=== PATIENT | female | born 1980 | race Caucasian/White ===

== ENCOUNTER 2019-08-17 16:26 | Emergency (ER) | payer OTHER, SELFPAY ==
--- NOTE | ~2019-08-17 | XR_ITS ---
EXAMINATION: XR chest 1V portable DATE: 08/17/2019 17:11 INDICATION: Mid to left-sided chest pain. TECHNIQUE: frontal view of the chest was obtained. COMPARISON: Chest radiograph dated 04/10/2017 FINDINGS: Linear discoid atelectasis at the left mid and right mid to lower lung zones. No pulmonary edema, ple ural effusion or pneumothorax. The cardiomediastinal silhouette is within normal limits for AP techni que. Median sternotomy wires. IMPRESSION: 1. Mild bilateral discoid atelectasis. Reviewed, dictated and finalized at location A. ING SUPERVISOR
--- NOTE | ~2019-08-17 | CT_ITS ---
EXAMINATION: CTA chest PE protocol DATE: 08/17/2019 20:09 INDICATION: Chest pain TECHNIQUE: Computed tomography (CT) pulmonary angiogram of the chest was performed with 100 mL Omnipa que-350 intravenous contrast. Additional 3D reconstructions utilizing coronal maximum intensity proje ction (MIP) were performed. Automated exposure control and iterative reconstruction technique were em ployed. The dose-length product was 843.48 mGy-cm. COMPARISON: Chest CT dated 03/30/2012 FINDINGS: Excellent contrast opacification of the pulmonary arteries. There is mild streak artifact from dense contrast in the superior vena cava and right atrium. Scattered respiratory motion artifact, mild at t he upper lung zones increasing to severe at the bilateral lower lung zones. This significantly limits sensitivity in the basilar segmental pulmonary arteries. No definitive pulmonary embolism. Scattered mild discoid atelectasis in the lingula, right upper and bilateral lower lobes. No pneumonia, pulmon hal edema or pleural effusion. Heart size is normal. No pericardial effusion. Thoracic aorta is fredi l in caliber with no dissection. No pathologically enlarged thoracic lymphadenopathy. Visualized uppe r abdomen is unremarkable. Median sternotomy wires. Bones are otherwise unremarkable. IMPRESSION: 1. No pulmonary embolism identified. Sensitivity significantly limited in the basilar subsegmental pu lmonary arteries due to respiratory motion in the lower lung zones. 2. Mild scattered discoid atelectasis in both lungs. Reviewed, dictated and finalized at location A. LED NURSING FACILITY COUNSELOR IMPRESSION: 1. No pulmonary embolism identified. Sensitivity significantly limited in the b asilar subsegmental pulmonary arteries due to respiratory motion in the lower l rebekah zones. 2. Mild scattered discoid atelectasis in both lungs.
[2019-08-17 16:36] VITALS: BP 141/114; PULSE 70; RESP 14; TEMP 36.8; O2SAT 98
--- NOTE | 2019-08-17 16:40 | ED.CHESTPAIN ---
HPI - Chest Pain General Chief Complaint: Chest Pain Stated Complaint: CP Time Seen by Provider: 08/17/19 16:27 Source: patient and RN notes reviewed Mode of arrival: EMS Limitations: no limitations History of Present Illness HPI narrative: A 39 y/o female presents to the ED via EMS from [facility] with intermittent, sharp, stabbing, 9/10, lt CP beginning 1.5 hours ago. She states that she was laying on the concrete floor when the pain began and denies anything aggravating or alleviating it. She reports that the pain radiates into her back and neck. She notes that she then became so worked up that she vomited blood. She denies any cough, SOB, diarrhea, ABD pain, fevers, chills, and any other medical complaints at this time. MD complaint: chest pain (lt) Pertinent past history: CABG Onset (ago): hour(s) (1.5) Timing of current episode: episodic Onset: during rest Pain location: left chest Pain radiation: back and neck Pain scale (0-10): 9 Quality: sharp and other (stabbing) Relieving factors: nothing Exacerbating factors: nothing Associated symptoms: vomiting (blood) Risk Factors Coronary artery disease risk factors: hyperlipidemia Related Data Allergies Allergy/AdvReac Type Severity Reaction Status Date / Time No Known Allergies Allergy Unknown Verified 08/17/19 18:18 Review of Systems Review of Systems: All systems reviewed & are unremarkable except as noted in HPI and below Constitutional: Constitutional: Denies chills, Denies fever(s), Denies headache(s) and Denies weakness Eyes: Eyes: Denies blurry vision ENT: Denies headache(s) and Denies neck pain Cardiovascular: Cardiovascular: Reports chest pain (lt that radiates into her neck and back) and Denies dyspnea Respiratory: Respiratory: Denies cough and Denies dyspnea Gastrointestinal: Gastrointestinal: Denies abdominal pain, Denies diarrhea and Reports hematemesis Genitourinary: Genitourinary: Denies hematuria and Denies dysuria Neurologic: Denies headache(s) and Denies weakness PMFSH Past Medical History Medical History (Updated 09/19/19 @ 07:06 by Allyn Palacios MD) Anxiety Asthma Bronchitis Depression Dysphagia Endocarditis Endometriosis GERD (gastroesophageal reflux disease) History of ovarian cyst History of pneumonia HLD (hyperlipidemia) Hx of migraines Pneumothorax Surgical History Surgical History (Updated 08/17/19 @ 22:12 by Ruben Mederos) History of appendectomy History of heart surgery For endocarditis and removal of vegetation. History of oophorectomy History of removal of ovarian cyst Social History Social History (Updated 08/17/19 @ 16:49 by Ruben Mederos) Smoking status: Unknown if ever smoked Substance use: unknown Substance use type: heroin Gender identity (if verbalized by the patient): Female Exam Const: General: no acute distress and well developed Orientation/consciousness: oriented to person, oriented to place, oriented to time and patient oriented x3 HENMT: Head: normocephalic Ears: external ears normal General nose exam: Normal external nose present Eyes: General: appearance normal, both eyes and all related structures Conjunctivae: conjunctivae normal Neck: Neck: normal visual inspection and full ROM Chest: Chest palpation & inspection: normal inspection of the chest and no tenderness Resp: Effort & Inspection: normal respiratory effort Auscultation: clear to auscultation bilaterally Cardio: Rate: regular rate Rhythm: regular rhythm GI: GI Palp: No abdominal tenderness and Yes Soft to palpation Skin: General skin exam: normal color and turgor normal Neuro: General: oriented to person, oriented to place, oriented to time and patient oriented x3 Cognition (Neuro): normal cognition Extrem: General: normal to inspection, full ROM and no pedal edema Psych: Appearance: grossly normal Mental Status: mental status grossly normal Affect: normal affect Course Vital Signs Vital sign
--- NOTE | 2019-08-17 16:45 | ECG_ITS ---
Measurements Intervals [place] Rate: 58 P: 38 NE: 142 QRS: 18 QRSD: 91 T: 100 QT: 418 QTc: 413 Interpretive Statements SINUS BRADYCARDIA WITH SINUS ARRHYTHMIA BORDERLINE ST-T WAVE ABNORMALITY- LATERAL LEADS BORDERLINE ECG Electronically Signed On 08-17-2019 17:22:13 [employer] SALES AGENT by Mando Hodge D.O.
[2019-08-17 18:15] LABS: Basophils Percent Auto 0.5 % (0.2-1.2); Eosinophils Percent Auto 0.4 % (0-4.4); Hematocrit 42.5 % (37.0-47.0); Immature Granulocyte Absolute 0.01 K/mm3 (0.00-0.031); Immature Granulocyte Percent A 0.2 % (0-0.5); Lymphocytes Absolute Auto 1.74 K/mm3 (0.9-3.2); Lymphocytes Percent Auto 31.1 % (18.3-44.2); Mean Corpuscular HGB Conc 32.9 g/dl (32-36); Mean Corpuscular Hemoglobin 28.5 pg (26-34); Mean Corpuscular Volume 86.6 fl (80-100); Mean Platelet Volume 10.3 fl (7.4-10.4); Monocytes Absolute Auto 1.1 K/mm3 (0.1-0.6); Monocytes Percent Auto 19.6 % (2.6-8.5); Neutrophils Absolute Auto 2.7 K/mm3 (1.3-6.7); Neutrophils Percent Auto 48.2 % (45.5-73.1); Platelet Count Result 308 k/mm3 (150-375); Red Blood Count 4.91 M/mm3 (4.2-5.4); Red Cell Distribution Width 13.7 % (11.5-14.5); White Blood Count 5.6 K/mm3 (4.5-10.0)
[2019-08-17 18:17] VITALS: PULSE 64
[2019-08-17 18:28] LABS: D Dimer 1.25 ug/mL (<0.48)
[2019-08-17 19:25] LABS: Alanine Aminotransferase 15 U/L (4-35); Albumin Level 4.3 g/dL (3.5-5.1); Alkaline Phosphatase 71 U/L (38-126); Aspartate Amino Transferase 20 U/L (14-36); Bilirubin,Total 0.6 mg/dL (0.2-1.3); Blood Urea Nitrogen 13 mg/dL (7-17); Calcium 10.1 mg/dL (8.4-10.2); Carbon Dioxide 18 mmol/L (22-30); Chloride 108 mmol/L (98-107); Estimated CRCL calculation 132 ml/min; Estimated Glomerular Filt Rate > 60; Glucose 98 mg/dL (65-105); Potassium 4.7 mmol/L (3.4-5.0); Sodium 142 mmol/L (137-145)
[2019-08-17] MEDS: KETOROLAC 30 MG/ML VIAL (*BKC) IV PUSH (19:43)
--- NOTE | 2019-08-17 19:54 | PC.NURSE ---
Patient attempted to provide a urine specimen, unsuccessfull. CT called and notified. Patient stated there is no chance of and she will sign any form necessary. This nurse informed CT. EDP also informed.
--- NOTE | 2019-08-17 20:02 | PC.NURSE ---
Patient taken to CT.
[2019-08-17 20:07] LABS: Troponin I < 0.012 ng/mL (0.000-0.034)
[2019-08-17 22:13] VITALS: BP 125/65; PULSE 60; RESP 20; O2SAT 98
== END 2019-08-17 22:16 ==
PROVIDERS: Emergency Provider Emergency Medicine
DX: R07.9 Chest pain, unspecified (principal); Z95.1 Presence of aortocoronary bypass graft; J45.909 Unspecified asthma, uncomplicated; I38 Endocarditis, valve unspecified; K21.9 Gastro-esophageal reflux disease without esophagitis; E78.5 Hyperlipidemia, unspecified; R00.1 Bradycardia, unspecified; R94.31 Abnormal electrocardiogram [ECG] [EKG]; R91.8 Other nonspecific abnormal finding of lung field
CPT/HCPCS: 36415; 71045; 71275; 80053; 84484; 85025; 85380; 93005; 96374; 99284; J1885; Q9967